=== PATIENT | female | born 1985 | race Caucasian/White ===

== ENCOUNTER 2018-06-25 08:41 | Inpatient (IN) | payer OTHER ==
[2018-06-25 11:33] LABS: ADD MAN DIFF? NO
[2018-06-25] MEDS: SOD CHLORIDE 0.9% 1,000 ML IV (11:39)
[2018-06-25 11:45] LABS: BASOPHILS % 0.4 % (0.0-2.0); EOSINOPHILS # 0.3 10^3/ul (0.0-0.5); EOSINOPHILS % 3.1 % (0.0-7.0); HEMATOCRIT 40.6 % (37.0-47.0); HEMOGLOBIN 13.7 g/dl (12.0-16.0); LYMPHOCYTES # 2.8 10^3/ul (0.8-2.9); LYMPHOCYTES % 31.2 % (15.0-51.0); MEAN CORPUSCULAR HEMOGLOBIN 29.2 pg (29.0-33.0); MEAN CORPUSCULAR HGB CONC 33.7 g/dl (32.0-37.0); MEAN CORPUSCULAR VOLUME 86.6 fl (82.0-101.0); MEAN PLATELET VOLUME 9.2 fl (7.4-10.4); MONOCYTE # 0.5 10^3/ul (0.3-0.9); MONOCYTES % 5.4 % (0.0-11.0); NEUTROPHIL # 5.3 10^3/ul (1.6-7.5); NEUTROPHILS % 59.6 % (39.0-77.0); PLATELET COUNT 319 10^3/UL (140-415); RED BLOOD COUNT 4.69 10^6/ul (4.20-5.40)
[2018-06-25 11:45] LABS: WHITE BLOOD COUNT 8.9 10^3/ul (4.8-10.8)
[2018-06-25 11:56] LABS: ALANINE AMINOTRANSFERASE 26 IU/L (13-69); ALBUMIN 4.5 g/dl (3.3-4.9); ALBUMIN/GLOBULIN RATIO 1.45; ALKALINE PHOSPHATASE 64 IU/L (42-121); ANION GAP 9 (5-13); ASPARTATE AMINO TRANSFERASE 16 IU/L (15-46); BILIRUBIN,INDIRECT 0.5 mg/dl (0-1.1); BILIRUBIN,TOTAL 0.5 mg/dl (0.2-1.3); BLOOD UREA NITROGEN 8 mg/dl (7-20); CALCIUM 9.6 mg/dl (8.4-10.2); CARBON DIOXIDE 27 mmol/L (21-31); CHLORIDE 108 mmol/L (97-110); CREATININE 0.57 mg/dl (0.44-1.00); Estimated GFR > 60 mL/min (>60); GLUCOSE 101 mg/dl (70-220); INR 0.86; POTASSIUM 4.3 mmol/L (3.5-5.1); PROTIME 11.8 Sec (11.9-14.9); PT RATIO 0.9; SODIUM 144 mmol/L (135-144); TOTAL PROTEIN 7.6 g/dl (6.1-8.1)
[2018-06-25 11:57] LABS: PARTIAL THROMBOPLASTIN TIME 26.4 Sec (23.0-35.0)
[2018-06-25] MEDS ORDERED: PROPOFOL 20 ML (11:58)
[2018-06-25] MEDS ORDERED: ROCURONIUM 50 MG INJ (11:58)
[2018-06-25] MEDS ORDERED: NEOSTIGMINE 3 MG/3 ML SYRINGE ×2 (11:58→12:02)
[2018-06-25] MEDS ORDERED: SUCCINYLCHOLINE CHLORIDE 100 MG/5 ML SYG IV (11:58)
[2018-06-25] MEDS ORDERED: GLYCOPYRROLATE 0.4 MG INJ ×2 (11:58→12:03)
[2018-06-25] MEDS ORDERED: MEPERIDINE 100 MG INJ (11:58)
[2018-06-25] MEDS ORDERED: LIDOCAINE 2% (SDV) 5 ML INJ (11:58)
[2018-06-25] MEDS ORDERED: CEFAZOLIN 1 GM INJ (12:01)
[2018-06-25] MEDS ORDERED: ONDANSETRON 4 MG INJ (12:02)
[2018-06-25] MEDS ORDERED: METOCLOPRAMIDE 10 MG INJ (12:02)
[2018-06-25] MEDS: HYDROmorphONE 1 MG/ML SYG IV (12:49)
[2018-06-25] MEDS ORDERED: OXYCODONE/ACETAMINOPHEN (5/325) TAB PO (13:00)
[2018-06-25] MEDS ORDERED: EPHEDrine 25 MG/5 ML SYG IV (13:00)
[2018-06-25] MEDS ORDERED: LABETALOL HCL 20MG INJ IV (13:00)
[2018-06-25] MEDS ORDERED: MIDAZOLAM 1 MG/ML 2 ML INJ IV (13:00)
[2018-06-25] MEDS ORDERED: DIPHENHYDRAMINE 50 MG INJ IV (13:00)
[2018-06-25] MEDS ORDERED: hydrALAzine 20 MG INJ IV (13:00)
[2018-06-25] MEDS ORDERED: HYDROmorphONE 1 MG/5 ML IV SYRINGE IV ×2 (13:00→16:30)
[2018-06-25] MEDS ORDERED: METOCLOPRAMIDE 10 MG INJ IV (13:00)
[2018-06-25] MEDS ORDERED: FENTAnyl 50 MCG/ML VIAL IV ×2 (13:00)
[2018-06-25] MEDS: BUPIVACAINE 0.25% (MPF) 30 ML INJ (13:38)
[2018-06-25] MEDS: HYDROmorphONE 1 MG/5 ML IV SYRINGE IV ×2 (13:41→13:47)
[2018-06-25] MEDS: ONDANSETRON 4 MG INJ IV (13:41)
[2018-06-25] MEDS: MEPERIDINE 25 MG INJ IV (13:41)
[2018-06-25] MEDS: FENTAnyl 50 MCG/ML VIAL IV (14:11)
[2018-06-25] MEDS: OXYCODONE/ACETAMINOPHEN (5/325) TAB PO (14:48)
[2018-06-25] MEDS: HYDROmorphONE 0.5 MG/0.5 ML SYG IV ×3 (18:30→23:45)
[2018-06-25] MEDS ORDERED: ACETAMINOPHEN 325 MG TAB PO (21:00)
[2018-06-25] MEDS ORDERED: HYDROCODONE/APAP (5/325) TAB PO (21:00)
[2018-06-26] MEDS: HYDROCODONE/APAP (5/325) TAB PO (01:00)
[2018-06-26] MEDS: HYDROmorphONE 1 MG/ML SYG IV ×6 (01:12→22:53)
[2018-06-26] MEDS: SOD CHLORIDE 0.9% 1,000 ML IV ×2 (03:19→16:20)
[2018-06-26] MEDS: LORAZEPAM 2 MG INJ IV ×3 (03:22→23:39)
[2018-06-26] MEDS ORDERED: LORAZEPAM 2 MG INJ IV (03:30)
[2018-06-26 05:14] LABS: ADD MAN DIFF? NO
[2018-06-26 05:19] LABS: BASOPHILS % 0.3 % (0.0-2.0); EOSINOPHILS # 0.2 10^3/ul (0.0-0.5); EOSINOPHILS % 2.2 % (0.0-7.0); HEMATOCRIT 35.6 % (37.0-47.0); LYMPHOCYTES # 3.2 10^3/ul (0.8-2.9); LYMPHOCYTES % 29.6 % (15.0-51.0); MEAN CORPUSCULAR HEMOGLOBIN 29.1 pg (29.0-33.0); MEAN CORPUSCULAR HGB CONC 33.7 g/dl (32.0-37.0); MEAN CORPUSCULAR VOLUME 86.2 fl (82.0-101.0); MEAN PLATELET VOLUME 9.3 fl (7.4-10.4); MONOCYTE # 0.8 10^3/ul (0.3-0.9); MONOCYTES % 7.5 % (0.0-11.0); NEUTROPHIL # 6.4 10^3/ul (1.6-7.5); NEUTROPHILS % 60.1 % (39.0-77.0); PLATELET COUNT 274 10^3/UL (140-415); RED BLOOD COUNT 4.13 10^6/ul (4.20-5.40); RED CELL DISTRIBUTION WIDTH 11.9 % (11.5-14.5)
[2018-06-26 05:19] LABS: WHITE BLOOD COUNT 10.7 10^3/ul (4.8-10.8)
[2018-06-26 05:49] LABS: ALANINE AMINOTRANSFERASE 41 IU/L (13-69); ALBUMIN 3.7 g/dl (3.3-4.9); ALBUMIN/GLOBULIN RATIO 1.32; ALKALINE PHOSPHATASE 56 IU/L (42-121); ANION GAP 8 (5-13); ASPARTATE AMINO TRANSFERASE 37 IU/L (15-46); BILIRUBIN,INDIRECT 0.6 mg/dl (0-1.1); BILIRUBIN,TOTAL 0.6 mg/dl (0.2-1.3); BLOOD UREA NITROGEN 5 mg/dl (7-20); CALCIUM 8.4 mg/dl (8.4-10.2); CARBON DIOXIDE 23 mmol/L (21-31); CHLORIDE 108 mmol/L (97-110); CREATININE 0.55 mg/dl (0.44-1.00); Estimated GFR > 60 mL/min (>60); GLUCOSE 88 mg/dl (70-220); POTASSIUM 3.6 mmol/L (3.5-5.1); SODIUM 139 mmol/L (135-144); TOTAL PROTEIN 6.5 g/dl (6.1-8.1)
[2018-06-26] MEDS ORDERED: ACETAMINOPHEN WITH CODEINE PO (16:30)
[2018-06-26] MEDS ORDERED: [UNRECOGNIZED DRUG - OTHER] PO (16:30)
[2018-06-26] MEDS: oxyCODONE 5 MG TAB PO ×2 (17:08→22:03)
[2018-06-26] MEDS: ONDANSETRON 4 MG INJ IV (22:02)
[2018-06-27 05:19] LABS: ADD MAN DIFF? NO
[2018-06-27 05:23] LABS: WHITE BLOOD COUNT 9.7 10^3/ul (4.8-10.8)
[2018-06-27 05:23] LABS: BASOPHILS % 0.3 % (0.0-2.0); EOSINOPHILS # 0.5 10^3/ul (0.0-0.5); EOSINOPHILS % 5.1 % (0.0-7.0); HEMATOCRIT 37.8 % (37.0-47.0); HEMOGLOBIN 12.9 g/dl (12.0-16.0); LYMPHOCYTES # 3.1 10^3/ul (0.8-2.9); LYMPHOCYTES % 31.6 % (15.0-51.0); MEAN CORPUSCULAR HEMOGLOBIN 29.4 pg (29.0-33.0); MEAN CORPUSCULAR HGB CONC 34.1 g/dl (32.0-37.0); MEAN CORPUSCULAR VOLUME 86.1 fl (82.0-101.0); MEAN PLATELET VOLUME 9.1 fl (7.4-10.4); MONOCYTE # 0.8 10^3/ul (0.3-0.9); MONOCYTES % 7.8 % (0.0-11.0); NEUTROPHIL # 5.3 10^3/ul (1.6-7.5); PLATELET COUNT 283 10^3/UL (140-415); RED BLOOD COUNT 4.39 10^6/ul (4.20-5.40); RED CELL DISTRIBUTION WIDTH 11.9 % (11.5-14.5)
[2018-06-27] MEDS: SOD CHLORIDE 0.9% 1,000 ML IV ×2 (05:40→19:00)
[2018-06-27 06:00] LABS: ANION GAP 8 (5-13); BLOOD UREA NITROGEN 7 mg/dl (7-20); CALCIUM 9.1 mg/dl (8.4-10.2); CARBON DIOXIDE 23 mmol/L (21-31); CHLORIDE 108 mmol/L (97-110); CREATININE 0.57 mg/dl (0.44-1.00); Estimated GFR > 60 mL/min (>60); GLUCOSE 94 mg/dl (70-220); SODIUM 139 mmol/L (135-144)
[2018-06-27] MEDS: oxyCODONE 5 MG TAB PO ×4 (07:32→22:01)
[2018-06-27] MEDS: HYDROmorphONE 1 MG/ML SYG IV ×3 (09:10→18:33)
[2018-06-27] MEDS: SENNA TAB PO ×2 (11:02→21:59)
[2018-06-27] MEDS: LORAZEPAM 2 MG INJ IV ×2 (13:06→23:53)
[2018-06-27] MEDS ORDERED: DIPHENHYDRAMINE 50 MG CAP (22:48)
[2018-06-28] MEDS: HYDROmorphONE 1 MG/ML SYG IV ×2 (01:35→07:36)
[2018-06-28] MEDS: SENNA TAB PO ×2 (08:37→21:03)
[2018-06-28] MEDS: BISACODYL (EC) 5 MG TAB PO (08:38)
[2018-06-28] MEDS: oxyCODONE 5 MG TAB PO ×2 (13:30→21:04)
[2018-06-28] MEDS: LORAZEPAM 2 MG INJ IV (19:05)
[2018-06-28] MEDS: LACTULOSE 30ML CUP GTB (19:06)
[2018-06-28] MEDS: MAGNESIUM CITRATE 300 ML BTL PO (22:00)
[2018-06-29] MEDS: LORAZEPAM 2 MG INJ IV ×2 (00:27→09:18)
[2018-06-29] MEDS: oxyCODONE 5 MG TAB PO ×3 (00:27→09:17)
[2018-06-29] MEDS: SENNA TAB PO (09:16)
== END 2018-06-29 10:10 | disposition home or self-care (01) | DRG 419 ==
LOC: SDS 08:41 → MS1 18:15 → SDS 16:04 → MS1 16:04
PROC: 0FT44ZZ Resection of Gallbladder, Percutaneous Endoscopic Approach (ICD-10-PCS; principal; 2018-06-25 12:30)
DX: K80.12 Calculus of gallbladder with acute and chronic cholecystitis without obstruction (principal); G89.18 Other acute postprocedural pain; Z68.31 Body mass index [BMI] 31.0-31.9, adult; M25.511 Pain in right shoulder; E66.9 Obesity, unspecified; K59.00 Constipation, unspecified
CPT/HCPCS: 80048; 80053; 85025; 85610; 85730; 88304